=== PATIENT | male | born 1980 | race Caucasian/White ===

== ENCOUNTER → 2016-04-09 | Outpatient (CLI) | payer OTHER ==
[~2016-04-09] MED LIST: LRT5 PO
--- NOTE | 2016-04-09 12:21 | DIAGNOSTIC IMAGING REPORT ---
LEFT FOOT MIN 3 VIEWS ROUTINE CLINICAL HISTORY: Left foot pain. Suspect gout. COMPARISON: None FINDINGS: The tarsometatarsal joints are intact. There is a bipartite lateral sesamoid of the left great toe. No fracture is identified. There is no radiographic evidence of a stress fracture within the left foot. There is mild plantar calcaneal spurring. Joint spaces are preserved. No soft tissue calcifications are identified. There is mild soft tissue swelling along the medial aspect of the left first metatarsophalangeal joint. IMPRESSION: 1. No acute fracture or dislocation of the left foot. 2. No erosions or soft tissue calcifications. Minimal soft tissue swelling along the medial aspect of the left first metatarsophalangeal joint. 3. Bipartite lateral sesamoid of the left great toe. Electronically signed by: Jose Moran M.D. 04/09/2016 12:19 PM Dictated Date/Time: 04/09/2016 12:17 PM
== END | disposition home or self-care (01) ==
LOC: C.RAD 12:01
PROVIDERS: ATTEND Family Medicine
DX: M20.12 Hallux valgus (acquired), left foot (principal)

== ENCOUNTER → 2016-06-03 | Outpatient (CLI) | payer OTHER ==
--- NOTE | 2016-06-09 17:32 | EXERCISE STRESS TEST ---
EXERCISE TREADMILL REPORT FINDINGS: The patient exercised using a Je protocol for 8 minutes, achieving a maximum heart rate of 179, which represented 97% of the predicted maximum heart rate. Baseline blood pressure is 135/100, which ta to 195/85 at maximum. Baseline EKG demonstrated normal sinus rhythm with an incomplete right bundle branch block. There were no significant EKG changes noted during testing today. No symptoms were reported during the test. Heart rate recovery was 32. Aguirre treadmill score was 8, representing low risk. IMPRESSION: Normal maximal exercise treadmill test without evidence of inducible ischemia or symptoms.
== END | disposition home or self-care (01) ==
LOC: C.CPL 11:43
PROVIDERS: ATTEND Family Medicine
DX: R06.09 Other forms of dyspnea (principal); I10 Essential (primary) hypertension